=== PATIENT | female | born 1965 | race Caucasian/White ===

== ENCOUNTER 2019-08-01 10:06 | Outpatient (CLI) | payer OTHER | END 2019-08-01 10:07 | disposition home or self-care (01) | LOC: MAMO-SONO 10:06 | DX: N60.11 Diffuse cystic mastopathy of right breast (principal); N60.12 Diffuse cystic mastopathy of left breast; Z12.31 Encounter for screening mammogram for malignant neoplasm of breast; Z80.3 Family history of malignant neoplasm of breast ==

== ENCOUNTER 2020-10-29 08:50 | Outpatient (CLI) | payer OTHER | END 2020-10-30 09:00 | disposition home or self-care (01) | LOC: MAMO-SONO 08:50 | PROVIDERS: ATTEND Specialist | DX: Z12.31 Encounter for screening mammogram for malignant neoplasm of breast (principal); N60.11 Diffuse cystic mastopathy of right breast; N60.12 Diffuse cystic mastopathy of left breast ==

== ENCOUNTER 2022-07-22 10:03 | Outpatient (CLI) | payer OTHER | END 2022-07-22 10:12 | disposition home or self-care (01) | LOC: MAMO-SONO 10:03 | PROVIDERS: ATTEND Specialist | DX: N60.11 Diffuse cystic mastopathy of right breast (principal); N60.12 Diffuse cystic mastopathy of left breast ==

== ENCOUNTER → 2022-07-22 | Outpatient (CLI) | payer OTHER | END | disposition home or self-care (01) | LOC: NUCLEAR 10:30 | PROVIDERS: ATTEND Specialist | DX: M81.0 Age-related osteoporosis without current pathological fracture (principal) ==